=== PATIENT | female | born 1995 | race African-American/Black ===

== ENCOUNTER 2018-05-26 19:11 | Emergency (ER) | payer OTHER ==
[2018-05-26 19:45] VITALS: BP 142/72; PULSE 88; TEMP 98.6; BMI 22.0
--- NOTE | 2018-05-26 19:46 | PDOC ---
Rapid Medical Evaluation Time Seen by Provider: 05/26/18 19:43 Medical Evaluation: Allergies Allergy/AdvReac Type Severity Reaction Status Date / Time grapefruit [Grapefruit] Allergy Verified 05/07/17 19:16 05/26/18 19:43 Pt c/o: mid upper back pain x 3 days, no relief with motrin heating pad, etc, denies sob, rash, worse with movement Pt on brief exam: tenderness to left upper trapezuis, no vertebral tenderness pt ordered for: none pt to proceed to the ED Discharge Disposition - Diagnosis Back pain - Referrals - Patient Instructions - Post Discharge Activity
--- NOTE | 2018-05-26 20:43 | PDOC ---
History of Present Illness - General Chief Complaint: Back Pain Stated Complaint: BACK PAIN Time Seen by Provider: 05/26/18 19:43 - History of Present Illness Initial Comments: 05/26/18 20:41 23-year-old female unsure of her status presents for evaluation of neck and upper back pain 2 days. She states she woke up yesterday morning with a spasm in her upper back and neck and today progressed where she has difficulty turning her head. She has no other comorbidities she is currently being treated for UTI Past History - Past Medical History Allergies/Adverse Reactions: Allergies Allergy/AdvReac Type Severity Reaction Status Date / Time grapefruit [Grapefruit] Allergy Verified 05/07/17 19:16 Home Medications: Ambulatory Orders Pnv No.95/Ferrous Fum/Folic AC [ Vitamin Tablet] 1 each PO DAILY #30 tablet 05/26/18 COPD: No - Immunization History Immunization Up to Date: Yes - Suicide/Smoking/Psychosocial Hx Smoking Status: No Smoking History: Never smoked Number of Cigarettes Smoked Daily: 0 Review of Systems - Review of Systems Constitutional: No: Fever Musculoskeletal: Yes: See HPI, Neck Pain *Physical Exam - Vital Signs Last Vital Signs Temp Pulse Resp BP Pulse Ox 98.6 F 88 18 142/72 98 05/26/18 19:44 05/26/18 19:44 05/26/18 19:44 05/26/18 19:44 05/26/18 19:44 - Physical Exam Comments: 05/26/18 20:42 Cervical spine skin color and temperature are normal range of motion is limited. There is mild left-sided paracervical musculature spasm which also transition to the levator scapula spasm and tenderness. 5 out of 5 strength in bilateral upper extremities without gross sensorimotor deficits negative she is unable to tolerate dispelling maneuver *DC/Admit/Observation/Transfer Diagnosis at time of Disposition: Cervical strain, Diagnosis at time of Disposition: (Ruled Out): Back pain - Discharge Dispostion Disposition: HOME Condition at time of disposition: Stable Decision to Admit order: No - Referrals Referrals: Brian Ladd [Primary Care Provider] - Robin Martinez MD [Staff Physician] - Lisa Whiting MD [Staff Physician] - - Patient Instructions Printed Discharge Instructions: DI for Cervical Muscle Strain Additional Instructions: Your test is positive tonight. Please only take Tylenol for pain as directed. Follow-up with spine surgery for further evaluation and treatment options. Also follow-up with obstetrics and gynecology for further evaluation and management of your . I've given you a prescription tear pharmacy for vitamins which she may start immediately - Post Discharge Activity
== END 2018-05-26 21:47 | disposition home or self-care (01) ==
LOC: JERFT 19:11
DX: O99.89 Other specified diseases and conditions complicating pregnancy, childbirth and the puerperium (principal); S16.1XXA Strain of muscle, fascia and tendon at neck level, initial encounter; X58.XXXA Exposure to other specified factors, initial encounter; Y93.89 Activity, other specified; Y92.89 Other specified places as the place of occurrence of the external cause; Y99.9 Unspecified external cause status; Z3A.00 Weeks of gestation of pregnancy not specified
CPT/HCPCS: 84703; 99281-25

== ENCOUNTER 2018-08-30 20:10 | Emergency (ER) | payer OTHER ==
[2018-08-30 20:19] VITALS: BP 112/53; PULSE 87; TEMP 98; BMI 21.6
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
== END 2018-08-30 23:57 | disposition home or self-care (01) ==
LOC: JERFT 20:10 → JER 20:10
DX: S92.515A Nondisplaced fracture of proximal phalanx of left lesser toe(s), initial encounter for closed fracture (principal); S00.83XA Contusion of other part of head, initial encounter; Y04.2XXA Assault by strike against or bumped into by another person, initial encounter; Y93.89 Activity, other specified; Y92.89 Other specified places as the place of occurrence of the external cause; Y99.8 Other external cause status; Y07.6 Multiple perpetrators of maltreatment and neglect
CPT/HCPCS: 70486-TC; 73660-TC-LT-FY; 84703; 99281-25

== ENCOUNTER 2022-11-20 20:52 | Emergency (ER) | payer OTHER ==
[2022-11-20 21:00] VITALS: BP 124/70; PULSE 88; RESP 18; TEMP 98; BMI 21.4
== END 2022-11-21 00:06 | disposition home or self-care (01) ==
LOC: JER 20:52
PROC: 2W3RX1Z Immobilization of Left Lower Leg using Splint (ICD-10-PCS; principal; 2022-11-20)
DX: S82.402A Unspecified fracture of shaft of left fibula, initial encounter for closed fracture (principal); M25.572 Pain in left ankle and joints of left foot; W01.0XXA Fall on same level from slipping, tripping and stumbling without subsequent striking against object, initial encounter; Y93.9 Activity, unspecified
CPT/HCPCS: 29515; 73610-TC-LT-FY; 99283-25